=== PATIENT | female | born 1960 | race American Indian/Alaskan Native ===

== ENCOUNTER 2017-02-13 08:28 | Outpatient (CLI) | payer OTHER, BC ==
--- NOTE | 2017-02-14 10:45 | Mammography Report ---
BILATERAL DIGITAL SCREENING MAMMOGRAM with CAD: 02/13/17 08:28:00 CLINICAL: Routine screening. COMPARISON:03/01/16 FINDINGS: The breasts are heterogeneously dense, which may obscure small masses. No mass, architectural distortion or suspicious calcifications. IMPRESSION: No mammographic evidence of malignancy. BI-RADS CATEGORY: 1 - - Negative RECOMMENDATION: Routine mammographic screening in one year. COMMENT: Patient follow-up letters are generated by our [employer] application.
== END 2017-02-13 08:29 | disposition home or self-care (01) ==
LOC: SPVWC 08:28
PROVIDERS: ATTEND Family Medicine
DX: Z12.31 Encounter for screening mammogram for malignant neoplasm of breast (principal)
CPT/HCPCS: 77067; G0202

== ENCOUNTER 2018-02-20 08:05 | Outpatient (CLI) | payer OTHER, BC ==
--- NOTE | 2018-02-20 16:20 | Mammography Report ---
BILATERAL DIGITAL SCREENING MAMMOGRAM with CAD and BILATERAL DIGITAL BREAST TOMOSYNTHESIS (DBT) : 02/20/18 CLINICAL: Routine screening. COMPARISON:02/13/17 FINDINGS: The breasts are heterogeneously dense, which may obscure small masses. 2 right outer asymmetries require additional imaging.The more anterior is upper outer, is irregular and measures approximately 1 cm. The more posterior has a partially circumscribed margin. No architectural distortion or suspicious calcifications. The left breast is negative. IMPRESSION: Right asymmetries requiring additional workup. BI-RADS CATEGORY: 0 - - Needs Additional Imaging RECOMMENDATION: Recall for right MLO and CC spot magnification views and right breast ultrasound. COMMENT: Patient follow-up letters are generated by our [employer] application.
== END 2018-02-20 08:06 | disposition home or self-care (01) ==
LOC: SPVWC 08:05
PROVIDERS: ATTEND Family Medicine
DX: Z12.31 Encounter for screening mammogram for malignant neoplasm of breast (principal)
CPT/HCPCS: 77063; 77067

== ENCOUNTER → 2018-03-12 | Outpatient (CLI) | payer OTHER, BC ==
--- NOTE | 2018-03-12 16:30 | Mammography Report ---
RIGHT DIGITAL DIAGNOSTIC MAMMOGRAM and RIGHT BREAST ULTRASOUND: 03/12/18 15:04:00 CLINICAL: Recalled for asymmetries COMPARISON:02/20/18 screening FINDINGS: Spot magnification MLO and CC views were performed and demonstrate persistent asymmetries.A 1.1 cm spiculated density is particularly prominent on the spot magnification CC view. Ultrasound of the right breast (including all four quadrants and the retroareolar area) was performed. A solid irregular heterogeneous but predominantly hypoechoic mass at 11 o'clock 5 cm from the nipple correlates with the anterior upper outer asymmetry closest to the nipple. It measures approximately 1.1 x 0.9 x 1.2 cm and this measurement includes a hyperechoic component. A solid irregular hypoechoic mass at 6 o'clock 6 cm from the nipple measures 1.0 x 0.7 x 0.6 cm. This mass is not well-demonstrated mammographically but in retrospect on the screening MLO souleymane series it appears to be partially included at the posterior inferior margin of the image. An oval hypoechoic mass versus complex cyst at 9 o'clock 4 cm from the nipple measures approximately 1.0 x 0.3 x 0.5 cm and correlates with the more posterior asymmetry identified on the screening exam. Ultrasound of the right axilla demonstrated no suspicious lymph nodes. Two small lymph nodes with central fat and benign morphology measure less than 1 cm. There is a questionable predominantly fatty lymph node in the axilla measuring 2.5 x 1.4 cm. IMPRESSION: 1. Two highly suspicious right breast masses at 11 o'clock and 6 o'clock. Recommend ultrasound guided needle biopsy of both of these masses.2. A probably benign complex cyst versus solid mass at 9 o'clock 4 cm from the nipple. I do not recommend biopsy of this lesion at this time. 3. No suspicious lymph nodes. BI-RADS CATEGORY: 5 - - Highly Suggestive of Malignancy I discussed the findings and the recommendation for two needle biopsies of the right breast with the patient at the time of the examination. ACR BI-RADS MAMMOGRAPHIC CODES: 0 = Needs additional imaging evaluation; 1 = Negative; 2 = Benign; 3 = Probably benign; 4 = Suspicious; 5 = Malignant; 6 = Known biopsy-proven malignancy COMMENT: 1. Dense breast tissue, i.e., adenosis, fibrocystic changes, etc., may obscure an underlying neoplasm. 2. Approximately 10% of cancers are not detected with mammography. 3. A negative mammography report should not delay biopsy if a clinically suspicious mass is present. COMMENT: Patient follow-up letters are generated via our [employer] application.
== END | disposition home or self-care (01) ==
LOC: SPVWC 15:04
PROVIDERS: ATTEND Family Medicine
DX: R92.8 Other abnormal and inconclusive findings on diagnostic imaging of breast (principal)

== ENCOUNTER 2018-03-19 12:51 | Outpatient (CLI) | payer OTHER, BC ==
--- NOTE | 2018-03-19 14:30 | Mammography Report ---
RIGHT DIGITAL DIAGNOSTIC MAMMOGRAM: 03/19/18 12:51:00 CLINICAL: For clip placement immediately status post ultrasound biopsy at 11 o'clock 5 cm from the nipple and at 6 o'clock 6 cm from nipple. COMPARISON:03/12/18 FINDINGS: Biopsy clips are identified at 11 o'clock and 6 o'clock and are concordant with the previously described lesions. IMPRESSION: Concordant clip placement status post ultrasound biopsy at 2 sites. BI-RADS CATEGORY: 5 - - Highly Suggestive of Malignancy Pathology pending.
--- NOTE | 2018-03-19 15:29 | Ultrasound Report ---
ULTRASOUND GUIDED NEEDLE CORE BIOPSY WITH CLIP PLACEMENT AT 2 SITES RIGHT BREAST : 03/19/18 CLINICAL: Suspicious right breast masses at 11 o'clock and 6 o'clock. COMPARISON :03/12/18 FINDINGS: The procedure was explained to the patient and informed consent was obtained . Ultrasound demonstrated the previously described masses. The skin was prepped with Betadine and anesthetized with 1% lidocaine. Ultrasound needle core biopsy was performed at 11 o'clock through a small dermatotomy using ultrasound guidance, 2% lidocaine with epinephrine for deep anesthesia and a 14-gauge Achieve biopsy device. Imaging demonstrated satisfactory sampling. 5 cores were obtained and placed in formalin. A localizer clip was then deployed within the lesion. The skin was prepped with Betadine and anesthetized with 1% lidocaine. Ultrasound needle core biopsy was performed at 6 o'clock through a small dermatotomy using ultrasound guidance, 2% lidocaine with epinephrine for deep anesthesia and a 14-gauge Achieve biopsy device. 3 cores were obtained and placed in formalin. A localizer clip was deployed within the lesion. Hemostasis was obtained both sites with minimal pressure and sterile dressings were applied. The patient tolerated the procedure well and there were no apparent complications. A two-view mammogram demonstrated concordant clip placement at 2 sites. She was discharged in good condition and was given instructions for wound care and followup. IMPRESSION: Uncomplicated ultrasound-guided needle core biopsy of two right breast masses .
== END 2018-03-19 12:52 | disposition home or self-care (01) ==
LOC: SPVWC 12:51
PROVIDERS: ATTEND Family Medicine
DX: C50.411 Malignant neoplasm of upper-outer quadrant of right female breast (principal); C50.811 Malignant neoplasm of overlapping sites of right female breast
CPT/HCPCS: 19083; 19084; 77065; A4648; 88305; 88342; 88361

== ENCOUNTER 2018-04-15 14:34 | Outpatient (CLI) | payer OTHER, BC ==
--- NOTE | 2018-04-15 15:45 | Mammography Report ---
BONE DEXA:04/15/18 14:34:00 CLINICAL: Postmenopausal.Newly diagnosed right breast cancer. TECHNIQUE: Two site bone DEXA performed on an Hologic scanner. FINDINGS: The average BMD of the lumbar spine L1-L4 is 1.057g/cm squared with a T-score of -0.8 and a Z-score of +0.4. The average BMD of the right hip is 0.941g/cm squared with a T-score of -0.6 and a Z-score of 0. IMPRESSION: 1. WHO classification: Normal with average fracture risk based on lumbar spine measurements. 2. WHO classification: Osteopenia with increased fracture risk based on right hip measurements. RECOMMENDATION: Clinical correlation and routine screening. DEFINITIONS: BMD = Bone Mineral Density T-score = BMD related to mean peak bone mass of young adult (mean expressed in Standard Deviation) Z-score = Age matched BMD expressed in SD World Health Organization (WHO) Diagnostic Criteria Normal T-score > -1 SD Osteopenia T-score between -1 and -2.4 SD Osteoporosis T-score -2.5 SD or below NOTE: BMD is not the only risk factor for fracture. One should also consider factors such as the patient's age, risk of falling, previous osteoporotic fracture, family history of osteoporotic fractures, current smoker, and low body weight. Z-scores are not calculated if >80 years of age.
== END 2018-04-15 14:35 | disposition home or self-care (01) ==
LOC: SPVWC 14:34
PROVIDERS: ATTEND Internal Medicine Hematology & Oncology
DX: Z13.820 Encounter for screening for osteoporosis (principal); C50.411 Malignant neoplasm of upper-outer quadrant of right female breast; E55.9 Vitamin D deficiency, unspecified; M85.88 Other specified disorders of bone density and structure, other site; F17.210 Nicotine dependence, cigarettes, uncomplicated; Z78.0 Asymptomatic menopausal state
CPT/HCPCS: 77080

== ENCOUNTER 2019-01-21 07:58 | Observation (INO) | payer OTHER, BC ==
[2019-01-16 10:17] LABS: Eosinophils # (Auto) 0.1 K/mm3 (0.0-0.4); Eosinophils % (Auto) 3.1 % (0.0-4.3); Hematocrit 37.2 % (30.3-42.9); Hemoglobin 12.6 gm/dl (10.1-14.3); Lymphocytes # (Auto) 1.6 K/mm3 (1.2-5.4); Lymphocytes % (Auto) 41.2 % (13.4-35.0); Mean Corpuscular HGB Conc 34 % (30-34); Mean Corpuscular Volume 87 fl (79-97); Monocytes # (Auto) 0.4 K/mm3 (0.0-0.8); Monocytes % (Auto) 9.9 % (0.0-7.3); Platelet Count 216 K/mm3 (140-440); Red Blood Count 4.26 M/mm3 (3.65-5.03); Red Cell Distribution Width 14.7 % (13.2-15.2)
--- NOTE | 2019-01-16 12:36 | Anesthesia Consultation ---
Anesthesia Consult and Med Hx Date of service: 01/16/19 - Airway Anesthetic Teeth Evaluation: Good ROM Head & Neck: Adequate Mental/Hyoid Distance: Adequate Mallampati Class: Class II Intubation Access Assessment: Probably Good - Pulmonary Exam CTA: Yes - Cardiac Exam Cardiac Exam: RRR - Pre-Operative Health Status ASA Pre-Surgery Classification: ASA2 Proposed Anesthetic Plan: General Nerve Block: PEC block - Pulmonary Hx Smoking: No Hx Respiratory Symptoms: No Hx Sleep Apnea: No - Cardiovascular System Hx Hypertension: No Hx Heart Attack/AMI: No Hx Percutaneous Transluminal Coronary Angioplasty (PTCA): No Hx Cardia Arrhythmia: No - Central Nervous System CVA: No Hx Back Pain: Yes (LOWER; BULGING DISC) Hx Psychiatric Problems: No - Gastrointestinal Hx Gastroesophageal Reflux Disease: No - Endocrine Hx Renal Disease: No Hx Cirrhosis: No Hx Insulin Dependent Diabetes: No Hx Non-Insulin Dependent Diabetes: No Hx Thyroid Disease: No - Hematic Hx Anemia: Yes Hx Sickle Cell Disease: No - Other Systems Hx Alcohol Use: Yes (OCCA) Hx Substance Use: No Hx Cancer: Yes (Breast Ca) - Additional Comments Anesthesia Medical History Comments: No hx anesthetic complications. Consented for preoperative PECs block for postop analgesia.
[~2019-01-21 07:58] MED LIST: ANCEF IV ONE; ANCEF ONE; BACITRACIN IR ONE; BACITRACIN ONE; GENTAMICIN IV ONE; GENTAMICIN ONE; METHYLENE BLUE IRRIGATION ONE; METHYLENE BLUE ONE; NACL 0.9% 1000 ML IR ONE; NACL 0.9% IR ONE; NACL P/F VIAL (10 ML) 30 ML ONE; NACL P/F VIAL (10 ML) INFILTRATI ONE; NEURONTIN PO NR; SUBLIMAZE IV PRN; VERSED IV NR
[2019-01-21] MEDS ORDERED: ZOFRAN IV PRN ×2 (09:30→14:13)
[2019-01-21] MEDS ORDERED: SUBLIMAZE IV PRN (09:30)
--- NOTE | 2019-01-21 09:32 | Anesthesia Day of Surgery ---
Anesthesia Day of Surgery - Day of Surgery Patient Examined: Yes Patient H&P Reviewed: Yes Patient is NPO: Yes
[2019-01-21] MEDS: LACTATED RINGERS 1,000 ML IV SCH ×2 (10:05→20:57)
[2019-01-21] MEDS ORDERED: MARCAINE-EPI 0.25%-1:200,000 INFILTRATI ONE ×2 (10:17→10:20)
[2019-01-21] MEDS ORDERED: DECADRON ONE ×2 (10:17→10:20)
[2019-01-21] MEDS ORDERED: ZOFRAN ONE (10:29)
[2019-01-21] MEDS ORDERED: DIPRIVAN 10 MG/ML IV ONE (10:29)
[2019-01-21] MEDS ORDERED: SUBLIMAZE ONE ×2 (10:29→14:39)
[2019-01-21] MEDS ORDERED: NEO SYNEPHRINE/NS Syringe(OR USE) IV ONE (10:30)
[2019-01-21] MEDS ORDERED: NACL 0.9% 1000 ML 2,000 ML ONE (10:32)
[2019-01-21] MEDS ORDERED: ANCEF/STERILE WATER 2 GM/20 ML IV NR (11:16)
[2019-01-21] MEDS ORDERED: METHYLENE BLUE IRRIGATION ONE (12:07)
[2019-01-21] MEDS ORDERED: WATER FOR IRRIG STERILE IR ONE (13:27)
[2019-01-21] MEDS ORDERED: BENADRYL PO PRN (14:13)
[2019-01-21] MEDS ORDERED: SODIUM CHLORIDE FLUSH SYRINGE 10 ML IV PRN (14:13)
[2019-01-21] MEDS ORDERED: REGLAN PO PRN (14:13)
[2019-01-21] MEDS ORDERED: TYLENOL PO PRN (14:16)
[2019-01-21] MEDS ORDERED: ZEMURON IV ONE (14:38)
[2019-01-21] MEDS ORDERED: LACTATED RINGERS 1,000 ML IV SCH (15:00)
--- NOTE | 2019-01-21 15:29 | Mammography Report ---
SPECIMEN RADIOGRAPH RIGHT BREAST: 01/21/19 07:58:00 CLINICAL: Surgical excision of known cancer. FINDINGS: 2 biopsy clips are identified within the mastectomy specimen.
--- NOTE | 2019-01-21 15:37 | Operative Report ---
Operative Report Operative Report: Operative Report: Date of Service: January 21, 2019 Preoperative diagnosis: Multicentric right breast cancer of the upper outer quadrant and lower outer quadrant Postoperative diagnosis: Same Procedure: Right total mastectomy with sentinel lymph node biopsy and left total mastectomy Surgeon: Maria C Beck M.D. Utility Tender Carding: Dr. Rosie Miguel Anesthesia: Gen. Findings: Right breast clips x2 present within right total mastectomy. 2 sentinel lymph nodes identified and negative for malignancy on frozen section Complications: None Drains: Per plastic surgery Estimated blood loss: 100 cc Disposition: Plastic surgeon Dr. Farley proceeded with bilateral tissue pole peeling machine operator placement Indications for operative procedure: This is a 58-year-old lady with stage IV multicentric right breast cancer of the upper outer quadrant and lower outer quadrant, IDCA grade 3 [id number] ER positive She completed neoadjuvant chemotherapy and recommendations were to proceed with a right mastectomy and SLN staging with possible ALND given significant improvment noted on recent PET. Prior to undergoing chemotherapy, patient diagnosed with Stage IV multicentric right breast cancer with osseous metastasis. Recent PET with prior areas of osseous metastasis not present. Recommendations at cancer conference were to proceed with a right mastectomy with SLNB to decrease her disease burden. Patient understands Stage IV breast cancer is not curable but treatable. She wished to proceed with a prophylactic left mastectomy, right total mastectomy and placement of bilateral tissue expanders in conjunction with plastic surgery. She wished to proceed with the above procedure. Procedure in detail: The patient was taken to the operating room and was placed supine. Gen. anesthesia was administered. The right nipple was injected with radioisotope and 1 cc of methylene blue with 1 cc of saline. Bilateral chest and axillas were prepped and draped in the normal sterile operative fashion. Timeout was performed. Typical mastectomy incision markings were made. Attention was taken toward the left breast first. First began raising of the superior flap to the level of the clavicle superiorly and posteriorly to the pectoralis muscle. Followed by raising of the medial flap to the level of the sternum and posteriorly to the pectoralis muscle. Followed by raising of the lateral flap to the level of the latissimus dorsi muscle and taken down posteriorly. Followed by raising of the inferior flap to the level of the inframammary fold taken posterior to the pectoralis muscle. The mastectomy/breast was removed from the pectoralis muscle without incident. The specimen was appropriately marked and sent to pathology. Chest cavity was irrigated and suctioned. Hemostasis was obtained. The port was noted and unharmed. Attention was taken towards the right breast. Ultrasound was used to identify known cancer location at the 11:00 position 6 cm from the nipple and 6:00 position 4-6 cm from the nipple, masses not well well-shadowing at 11:00 position present and no mass seen at the 6:00 positon. Gamma probe was inserted into the axilla to identify the sentinel lymph node location with uptake noted. A skin incision was made with a 10 blade knife and dissection taken down to the subcutaneous tissues. First began raising of the superior flap to the level of the clavicle superiorly and posteriorly to the pectoralis muscle. Followed by raising of the medial flap to the level of the sternum and posteriorly to the pectoralis muscle. Followed by raising of the lateral flap to the level of the latissimus dorsi muscle and taken down posteriorly. The gamma probe was inserted into the axilla, the axillary fascia was opened and 2 sentinel lymph nodes were identified with the gamma probe that was dissected free and sent to pathology. All remaining counts were less than 10% of the highest SLN. Lymph node was sent to pathology with findings negative for malignancy noted on frozen section, nodes noted to be blue as well. Pathologist unsure if second SLN contained 2 nodes. Then proceeded with raising of the inferior flap to the level of the inframammary fold taken posterior to the pectoralis muscle. Reactive tissue noted of the upper outer quadrant. The mastectomy/breast was removed from the pectoralis muscle without incident. The specimen was appropriately marked and sent to radiology with findings of 2 breast clips present and sent to pathology. Chest cavity was irrigated and suctioned. Hemostasis was obtained. Plastic surgery then proceeded with placement of bilateral tissue expanders. She tolerated surgery very well.
--- NOTE | 2019-01-21 15:37 | Short Stay Summary ---
Short Stay Documentation Date of service: 01/21/19 - History H&P: obtained from office - Allergies and Medications Current Medications: Allergies No Known Allergies Allergy (Verified 01/15/19 10:52) Home Medications Medication Instructions Recorded Confirmed Last Taken Type Iron Fum,Ps/Folic/Bcomp,C No.9 1 each PO DAILY 01/15/19 01/21/19 01/20/19 09:00 History [Integra Plus Capsule] Active Medications Acetaminophen (Tylenol) 650 mg PO Q6H PRN PRN Reason: Pain MILD(1-3)/Fever >100.5/MOORE Cefazolin Sodium (Ancef/Sterile Water 2 Gm/20 Ml) 2 gm IV PREOP NR Stop: 01/21/19 23:59 Celecoxib (Celebrex) 200 mg PO PREOP NR Stop: 01/21/19 23:59 Last Admin: 01/21/19 09:55 Dose: 200 mg Documented by: Diphenhydramine HCl (Benadryl) 25 mg PO Q8H PRN PRN Reason: Itching Docusate Sodium (Colace) 100 mg PO BID ISAC Fentanyl (Sublimaze) 100 mcg IV ONCE PRN PRN Reason: sedation for nerve block Last Admin: 01/21/19 10:38 Dose: 100 mcg Documented by: Fentanyl (Sublimaze) 50 mcg IV Q5MIN PRN PRN Reason: Pain , Severe (7-10) Stop: 01/21/19 20:00 Gabapentin (Neurontin) 300 mg PO PREOP NR Stop: 01/21/19 23:59 Last Admin: 01/21/19 09:55 Dose: 300 mg Documented by: Gabapentin (Neurontin) 300 mg PO Q8HR ISAC Lactated Ringer's (Lactated Ringers) 1,000 mls @ 100 mls/hr IV DIRECT ISAC Last Admin: 01/21/19 10:05 Dose: 100 mls/hr Documented by: Cefazolin Sodium (Ancef/Ns 1 Gm/50 Ml) 1 gm in 50 mls @ 100 mls/hr IV Q8HR ISAC; Protocol Lactated Ringer's (Lactated Ringers) 1,000 mls @ 125 mls/hr IV DIRECT ISAC Metoclopramide HCl (Reglan) 10 mg PO Q6H PRN PRN Reason: Nausea And Vomiting Midazolam HCl (Versed) 2 mg IV PREOP NR Stop: 01/21/19 23:59 Last Admin: 01/21/19 10:35 Dose: 2 mg Documented by: Ondansetron HCl (Zofran) 4 mg IV ONCE PRN PRN Reason: Nausea And Vomiting Ondansetron HCl (Zofran) 4 mg IV Q8H PRN PRN Reason: N/V unrelieved by Reglan Oxycodone HCl (Roxicodone) 5 mg PO Q6H PRN PRN Reason: Pain, Moderate (4-6) Sodium Chloride (Sodium Chloride Flush Syringe 10 Ml) 10 ml IV PRN PRN PRN Reason: LINE FLUSH - Brief post op/procedure progress note Date of procedure: 01/21/19 Pre-op diagnosis: Multicentric right breast cancer Post-op diagnosis: same Procedure: Left total mastectomy, right total mastectomy and right SLNB Anesthesia: GETA Findings: Right mastectomy with 2 clips present; x2 SLNs and negative for malignancy Surgeon: ERA LIAO Lens Polisher Hand: EDISON GREWAL Estimated blood loss: 50-100ml Pathology: list (bilateral mastectomy; x2 right SLNs) Specimen disposition: to lab Condition: stable - Disposition Condition at discharge: Good Disposition: DC/TX-02 SHRT-TRM GEN HOSP IP Short Stay Discharge Plan Activity: other (no heavy lifting) Diet: regular Wound: keep clean and dry Follow up with: ANNA LANE MD [Primary Care Provider] - 7 Days ERA LIAO MD [Staff Physician] - 7 Days
[2019-01-21] MEDS ORDERED: ROBINUL ONE (16:06)
[2019-01-21] MEDS ORDERED: XYLOCAINE MPF 2% ONE (16:06)
[2019-01-21] MEDS ORDERED: BLOXIVERZ ONE (16:06)
--- NOTE | 2019-01-21 16:22 | Operative Report ---
PREOPERATIVE DIAGNOSIS: Right-sided breast cancer. POSTOPERATIVE DIAGNOSIS: Right-sided breast cancer. PROCEDURE: 1. Bilateral breast reconstruction using tissue expanders. 2. Bilateral breast reconstruction using biological mesh. 3. Application of JOSE negative pressure wound VAC device to bilateral breasts for postoperative wound healing. SURGEON: Gabriel Corado MD MANUFACTURING ENGINEER ASSEMBLY: None. ANESTHESIA: General. OPERATIVE INDICATIONS: This is a 58-year-old female with a history of right breast cancer who is planning on undergoing bilateral mastectomies. She consulted with me for breast reconstruction and we decided on a tissue club director to implant reconstruction. Risks and benefits of surgery were discussed with the patient. She agreed. OPERATIVE DETAILS: With informed consent obtained, the patient was brought to the operating room and placed supine on the operating table. Preoperative antibiotics and general anesthesia were administered. The patient was prepped and draped in usual sterile fashion. A timeout was called verifying the name of the patient, the operation being performed. Dr. Beck in the beginning of the operation performing the left and then the right mastectomies with a sentinel node biopsy, which will be dictated separately by her. As she was completing the right-sided mastectomy, I came into the room and began to prepare for the reconstruction. We planned on a prepectoral reconstruction using a tissue club director and biological mesh. On the back table, we opened up our implants. We used a [place] Artoura ultra high profile 535 mL implants on the left. The implant, serial number was [id number]. On the right, serial was [id number]. We wrapped each club director with a FlexHD large perforated 13 x 22 cm shaped mesh and on the left side, the serial #[id number]. On the right, serial #[id number]. We evacuated all the air from the club director, then filled it with 100 mL of methylene blue tinted saline. We then soaked the FlexHD in triple antibiotic irrigation and then we wrapped it around the club director using spanning sutures posteriorly and the suture tabs anteriorly. The implants were then allowed to soak in triple antibiotic and Betadine and then once Dr. Beck was ready, I came to the field to place the implants, we started on the left side. I achieved hemostasis and then placed the composite breast implant with mesh over the pectoralis major muscle and secured it to the pec muscle and chest wall using multiple sutures circumferentially around the composite graft, then placed a 15 and a 19-Maori round Rolf drain and then closed with 3-0 Vicryl on the Valdez's layer and then a 2-0 Monocryl V-Loc barbed suture on the skin. Same procedure was performed on the right, again placed in the composite implant, securing it to the chest wall, irrigating, and achieving hemostasis and placing a 19 and 15-Maori round Rolf drain and then closing with a 3-0 Vicryl and the 2-0 Monocryl V-Loc. We placed JSOE negative pressure wound VAC devices to both breasts for postoperative wound healing cover the drains with Biopatches and Tegaderm. The patient tolerated the procedure well, was awakened from general anesthesia, and transferred to PACU in stable condition. ESTIMATED BLOOD LOSS: For my portion was minimal. COMPLICATIONS: None. SPECIMENS: None. JOB# [id number] ALYCIA/LILI
--- NOTE | 2019-01-21 20:31 | Post Anesthesia Evaluation ---
- Post Anesthesia Evaluation Patient Participated: Yes Airway Patent: Yes Stable Respiratory Function: Yes Nausea/Vomiting: No Temp > 96.8F: Yes Pain Manageable: Yes Adequeate Hydration: Yes Anesthesia Complications: No Block Receding Appropriately: Not Applicable Patient on Ventilator: No
[2019-01-21] MEDS: ROXICODONE PO PRN (20:50)
[2019-01-21] MEDS: COLACE PO SCH (22:49)
[2019-01-21] MEDS: ANCEF/NS 1 GM/50 ML 1 GM/50 ML BAG IV SCH (22:49)
[2019-01-21] MEDS: NEURONTIN PO SCH (22:50)
[2019-01-22] MEDS: ROXICODONE PO PRN ×2 (02:53→10:20)
[2019-01-22] MEDS: LACTATED RINGERS 1,000 ML IV SCH (06:03)
[2019-01-22] MEDS: ANCEF/NS 1 GM/50 ML 1 GM/50 ML BAG IV SCH ×2 (06:03→15:19)
[2019-01-22] MEDS: NEURONTIN PO SCH ×2 (06:03→15:19)
[2019-01-22] MEDS: COLACE PO SCH (10:18)
--- NOTE | 2019-01-22 15:15 | Discharge Summary ---
Providers - Providers Date of Admission: 01/21/19 14:13 Date of discharge: 01/22/19 Attending physician: ERA LIAO Primary care physician: ANNA LANE Hospitalization Reason for admission: surgery Procedures: bilateral mastectomy and wire harness design engineer reconstruction Hospital course: Pain controlled, diet advanced. Patient tolerating diet, pain controlled and ambulating prior to discharge. No issues, drain teaching given. Disposition: - TO HOME OR SELFCARE Core Measure Documentation - Palliative Care Palliative Care/ Comfort Measures: Not Applicable - Core Measures Any of the following diagnoses?: none Exam - Constitutional Vitals: Temp Pulse Resp BP Pulse Ox 98.2 F 87 18 104/62 98 01/22/19 12:25 01/22/19 12:25 01/22/19 12:25 01/22/19 12:25 01/22/19 12:25 General appearance: Present: no acute distress Plan Activity: other (no lifting more than 5 lbs, no driving) Wound: other (JOSE for 1 week, do not get wet or shower) Follow up with: ANNA LANE MD [Primary Care Provider] - 7 Days ERA LIAO MD [Staff Physician] - 7 Days
[2019-01-22 16:28] VITALS: BP 106/56
== END 2019-01-22 16:58 | disposition home or self-care (01) ==
LOC: OR 07:58 → OB 14:13
PROVIDERS: ADMIT Surgery; ATTEND Surgery
DX: C50.411 Malignant neoplasm of upper-outer quadrant of right female breast (principal); C50.311 Malignant neoplasm of lower-inner quadrant of right female breast; Z98.890 Other specified postprocedural states
CPT/HCPCS: 19303; 19357; 36415; 38525; 38792; 64450; 76098; 78800; 85025; 88307; 88309; 88331; 88333; 88342; 96365; 96366; 96375; 96376; A9541; C1789; G0378; J0690; J1100; J1580; J2250; J2370; J2405; J2704; J2710; J3010; J7030; J7120; Q4128; Q9968; 88341